=== PATIENT | male | born 1960 | race Caucasian/White ===

== ENCOUNTER 2017-03-08 13:09 | Outpatient (CLI) | payer MEDICARE, OTHER ==
[2017-03-08 13:07] VITALS: BP 147/80
[~2017-03-08 13:09] MED LIST: ASPI81TA30 PO; ATOR20TA66 PO; CETI-102 PO; FURO-150 PO; GABA-534 PO; LISI40TA4 PO; MECL12.584 PO; POTA20TA19 PO; TRAM50TA2 PO
[2017-03-08 13:26] VITALS: BP 147/80
== END 2017-03-08 13:55 | disposition home or self-care (01) ==
LOC: ORTHO 13:09
PROVIDERS: ATTEND Nurse Practitioner Family
DX: S86.012D Strain of left Achilles tendon, subsequent encounter (principal); W18.30XA Fall on same level, unspecified, initial encounter; Y92.838 Other recreation area as the place of occurrence of the external cause
CPT/HCPCS: 99213

== ENCOUNTER 2017-03-15 13:06 | Emergency (ER) | payer MEDICARE, OTHER ==
[~2017-03-15] VITALS: Ht 167.6 cm; Wt 145.4 kg
[2017-03-15] MEDS ORDERED: metoprolol tartrate 25mg tablet PO ONE (14:40)
[2017-03-15] MEDS ORDERED: morphine 2 MG/ML inj. syringe IV ONE (14:40)
[2017-03-15] MEDS ORDERED: nitroGLYCERIN 0.4mg SUBLingual tab SL PRN (14:40)
[2017-03-15] MEDS ORDERED: aspirin 81mg tab.chew PO ONE (14:40)
[2017-03-15 15:36] LABS: BASOPHILS % (AUTO) 0.5 % (0-1); EOSINOPHILS # (AUTO) 0.2 X10'3 (0-0.9); EOSINOPHILS % (AUTO) 2.2 % (0-6); HEMATOCRIT 44.8 % (42.0-52.0); HEMOGLOBIN 15.9 g/dl (14.0-17.9); LYMPHOCYTES # (AUTO) 1.7 X10'3 (1.1-4.8); LYMPHOCYTES % (AUTO) 21.8 % (21-51); MEAN CORPUSCULAR HEMOGLOBIN 29.9 PG (27.0-31.0); MEAN CORPUSCULAR HGB CONC 35.4 % (33.0-36.5); MEAN CORPUSCULAR VOLUME 84.5 FL (78-98); MEAN PLATELET VOLUME 7.7 FL (7.4-10.4); MONOCYTES # (AUTO) 0.6 X10'3 (0-0.9); MONOCYTES % (AUTO) 6.9 % (2-12); NEUTROPHILS # (AUTO) 5.5 X10'3 (1.8-7.7); NEUTROPHILS % (AUTO) 68.6 % (42-75); PLATELET COUNT 223 X10'3 (140-440); RED CELL DISTRIBUTION WIDTH 13.7 % (11.5-14.5)
[2017-03-15 15:41] LABS: ALANINE AMINOTRANSFERASE 32 U/L (12-78); ALBUMIN 4.4 G/DL (3.4-5.0); ALBUMIN/GLOBULIN RATIO 1.1 (1.1-1.5); ALKALINE PHOSPHATASE 107 IU/L (46-116); ANION GAP 10 (8-16); ASPARTATE AMINO TRANSFERASE 26 U/L (10-37); BILIRUBIN,TOTAL 0.7 MG/DL (0.1-1.0); BLOOD UREA NITROGEN 9 MG/DL (7-18); CALCIUM 9.6 MG/DL (8.5-10.1); CHLORIDE 106 MMOL/L (99-107); GLUCOSE 97 MG/DL (70-104); POTASSIUM 3.8 MMOL/L (3.5-5.1); SODIUM 144 MMOL/L (135-145); TOTAL CARBON DIOXIDE 28.1 MMOL/L (24-32); TOTAL PROTEIN 8.5 G/DL (6.4-8.2); eGFR 87 ML/MIN
[2017-03-15] MEDS ORDERED: NITR0.4T51 SL (16:33)
[2017-03-15 16:57] VITALS: BP 145/66
[2017-03-16] MEDS ORDERED: AMLO-94 PO (16:49)
[2017-03-16] MEDS ORDERED: TIZA4TAB11 PO (16:50)
== END 2017-03-15 16:59 | disposition left against medical advice (07) ==
LOC: ER 13:07
DX: I20.0 Unstable angina (principal); G89.29 Other chronic pain; M54.9 Dorsalgia, unspecified; I10 Essential (primary) hypertension; Z86.711 Personal history of pulmonary embolism; Z79.82 Long term (current) use of aspirin
CPT/HCPCS: 36415; 71045; 80053; 85025; 93005; 96374; 99285; J2270; 84484; 85610

== ENCOUNTER 2017-03-16 12:56 | Inpatient (IN) | payer MEDICARE, OTHER ==
[~2017-03-16] VITALS: Ht 167.6 cm; Wt 145.0 kg
[~2017-03-16 12:56] MED LIST changes: +NITR0.4T51 SL
[2017-03-16 15:02] LABS: ALANINE AMINOTRANSFERASE 34 U/L (12-78); ALBUMIN 4.6 G/DL (3.4-5.0); ALBUMIN/GLOBULIN RATIO 1.2 (1.1-1.5); ALKALINE PHOSPHATASE 111 IU/L (46-116); ANION GAP 11 (8-16); ASPARTATE AMINO TRANSFERASE 27 U/L (10-37); BILIRUBIN,TOTAL 0.9 MG/DL (0.1-1.0); BLOOD UREA NITROGEN 14 MG/DL (7-18); BUN/CREATININE RATIO 15.6 (5.4-32.0); CALCIUM 9.5 MG/DL (8.5-10.1); CHLORIDE 103 MMOL/L (99-107); GLUCOSE 104 MG/DL (70-104); MAGNESIUM 2.3 MG/DL (1.5-2.4); SODIUM 140 MMOL/L (135-145); TOTAL CARBON DIOXIDE 25.9 MMOL/L (24-32); TOTAL PROTEIN 8.6 G/DL (6.4-8.2); eGFR 87 ML/MIN
[2017-03-16] MEDS ORDERED: aspirin 325mg tablet PO ONE (16:00)
[2017-03-16 16:28] LABS: BASOPHILS % (AUTO) 0.6 % (0-1); EOSINOPHILS # (AUTO) 0.2 X10'3 (0-0.9); EOSINOPHILS % (AUTO) 2.7 % (0-6); HEMOGLOBIN 16.2 g/dl (14.0-17.9); LYMPHOCYTES # (AUTO) 2.4 X10'3 (1.1-4.8); LYMPHOCYTES % (AUTO) 28.1 % (21-51); MEAN CORPUSCULAR HEMOGLOBIN 29.9 PG (27.0-31.0); MEAN CORPUSCULAR HGB CONC 35.1 % (33.0-36.5); MEAN PLATELET VOLUME 7.5 FL (7.4-10.4); MONOCYTES # (AUTO) 0.7 X10'3 (0-0.9); MONOCYTES % (AUTO) 8.1 % (2-12); NEUTROPHILS # (AUTO) 5.2 X10'3 (1.8-7.7); NEUTROPHILS % (AUTO) 60.5 % (42-75); PLATELET COUNT 245 X10'3 (140-440); RED BLOOD COUNT 5.41 X10'6 (4.70-6.10); RED CELL DISTRIBUTION WIDTH 14.1 % (11.5-14.5); WHITE BLOOD COUNT 8.6 X10'3 (4.5-11.0)
[2017-03-16] MEDS ORDERED: AMLO-94 PO (16:49)
[2017-03-16] MEDS ORDERED: TIZA4TAB11 PO (16:50)
[2017-03-16] MEDS ORDERED: potassium Cl 20 mEq SR tablet PO PRN ×2 (17:15)
[2017-03-16] MEDS ORDERED: magnesium Cl slow-release 64mg tablet PO PRN (17:15)
[2017-03-16] MEDS ORDERED: HYDROcodone/acetaminophen 10/325mg tab PO PRN (17:15)
[2017-03-16] MEDS ORDERED: aminophylline 250mg/10ml inj. IV PRN (17:15)
[2017-03-16] MEDS ORDERED: ondansetron/PF 4mg/2ml inj IV PRN (17:15)
[2017-03-16] MEDS ORDERED: HYDROcodone/acetaminophen 5mg/325mg tablet PO PRN (17:15)
[2017-03-16] MEDS ORDERED: metoprolol tartrate 1mg/ml inj IV PRN (17:15)
[2017-03-16] MEDS ORDERED: magnesium hydroxide 30ml (MOM) UD suspension PO PRN (17:15)
[2017-03-16] MEDS ORDERED: nitroGLYCERIN 0.4mg SUBLingual tab SL PRN (17:15)
[2017-03-16] MEDS ORDERED: morphine 2 MG/ML inj. syringe IV PRN ×2 (17:15)
[2017-03-16] MEDS ORDERED: regadenoson 0.4mg/5ml syringe IV PRN (17:15)
[2017-03-16] MEDS ORDERED: potassium Cl 40MEQ/NS 500ml 500 ML IV PRN ×2 (17:15)
[2017-03-16] MEDS ORDERED: mag hydrox/Alum hydrox/simeth 30ml oral suspension PO PRN (17:15)
[2017-03-16] MEDS ORDERED: acetaminophen 325mg tablet PO PRN ×2 (17:15)
[2017-03-16] MEDS ORDERED: magnesium 2GM in 50ml NS 50 ML IV PRN (17:15)
[2017-03-16] MEDS ORDERED: magnesium 4gm in 100ml NS 100 ML IV PRN (17:15)
[2017-03-16 17:48] LABS: D-DIMER 1.95 MG/L FEU (0-0.50)
[2017-03-16] MEDS ORDERED: iohexol 350MG/ML 100ml bottle IV ONE (18:03)
[2017-03-16 20:00] VITALS: BP 133/85
[2017-03-16] MEDS: normal saline 1000ml 1,000 ML IV SCH (20:05)
[2017-03-16] MEDS: heparin, porcine 5000 units/ml vial SQ SCH (20:06)
[2017-03-16] MEDS: traMADol 50MG tablet PO SCH (20:23)
[2017-03-16] MEDS ORDERED: temazepam 15mg capsule PO PRN (21:00)
[2017-03-17] VITALS (10 sets, daily range): BP systolic 106–140; BP diastolic 55–77
[2017-03-17] MEDS: gabapentin 400mg capsule PO SCH ×3 (00:17→16:48)
[2017-03-17] MEDS: tizanidine 4mg tablet PO SCH ×3 (00:18→16:48)
[2017-03-17] MEDS: normal saline 1000ml 1,000 ML IV SCH ×2 (03:11→07:42)
[2017-03-17 04:45] LABS: BASOPHILS % (AUTO) 0.2 % (0-1); EOSINOPHILS # (AUTO) 0.2 X10'3 (0-0.9); EOSINOPHILS % (AUTO) 2.2 % (0-6); HEMATOCRIT 40.3 % (42.0-52.0); HEMOGLOBIN 14.3 g/dl (14.0-17.9); LYMPHOCYTES # (AUTO) 1.6 X10'3 (1.1-4.8); LYMPHOCYTES % (AUTO) 20.8 % (21-51); MEAN CORPUSCULAR HEMOGLOBIN 30.3 PG (27.0-31.0); MEAN CORPUSCULAR HGB CONC 35.6 % (33.0-36.5); MEAN CORPUSCULAR VOLUME 85.2 FL (78-98); MEAN PLATELET VOLUME 7.4 FL (7.4-10.4); MONOCYTES # (AUTO) 0.5 X10'3 (0-0.9); MONOCYTES % (AUTO) 6.1 % (2-12); NEUTROPHILS # (AUTO) 5.4 X10'3 (1.8-7.7); NEUTROPHILS % (AUTO) 70.7 % (42-75); PLATELET COUNT 208 X10'3 (140-440); RED BLOOD COUNT 4.73 X10'6 (4.70-6.10); RED CELL DISTRIBUTION WIDTH 14.1 % (11.5-14.5); WHITE BLOOD COUNT 7.6 X10'3 (4.5-11.0)
[2017-03-17 05:02] LABS: ALBUMIN 3.7 G/DL (3.4-5.0); ANION GAP 9 (8-16); BLOOD UREA NITROGEN 20 MG/DL (7-18); CALCIUM 8.7 MG/DL (8.5-10.1); CHLORIDE 105 MMOL/L (99-107); GLUCOSE 114 MG/DL (70-104); MAGNESIUM 2.2 MG/DL (1.5-2.4); SODIUM 140 MMOL/L (135-145); TOTAL CARBON DIOXIDE 26.4 MMOL/L (24-32); TROPONIN I < 0.04 NG/ML (0.0-0.05); eGFR 77 ML/MIN
[2017-03-17] MEDS ORDERED: pantoprazole 40mg Tablet.DR PO SCH (07:30)
[2017-03-17] MEDS: traMADol 50MG tablet PO SCH ×2 (07:41→14:42)
[2017-03-17] MEDS: heparin, porcine 5000 units/ml vial SQ SCH (07:42)
[2017-03-17] MEDS ORDERED: non-formulary drug (Lisinopril* 1 TAB) PO SCH (08:00)
[2017-03-17] MEDS ORDERED: cetirizine 10mg tablet PO SCH (08:00)
[2017-03-17] MEDS ORDERED: potassium Cl 20 mEq SR tablet PO SCH (08:00)
[2017-03-17] MEDS ORDERED: K and/or MAG REPLACEMENT MC SCH (08:00)
[2017-03-17] MEDS ORDERED: CefTRIAXone 1 gm/50ml D5W ADV 50 ML IV SCH (08:00)
[2017-03-17] MEDS ORDERED: lisinopril 20mg tablet PO SCH (08:00)
[2017-03-17] MEDS ORDERED: aspirin 81mg tab.chew PO SCH (08:30)
[2017-03-17] MEDS ORDERED: aminophylline inj. 0 ML IV ONE (08:38)
[2017-03-17] MEDS ORDERED: regadenoson 0.4mg/5ml syringe IV ONE (08:38)
[2017-03-17] MEDS ORDERED: CefTRIAXone/D5W-Rocephin 1gm 50 ML IV SCH (13:06)
[2017-03-17] MEDS ORDERED: lactobacillus rhamnosus 10,000 MMU CELLS/CAPSULE PO SCH (17:30)
[2017-03-17] MEDS ORDERED: PRAV40TA3 PO (18:18)
[2017-03-17] MEDS ORDERED: PANT40TA4 PO (18:18)
[2017-03-17] MEDS ORDERED: FURO-150 PO (18:18)
== END 2017-03-17 20:20 | disposition home or self-care (01) | DRG 392 ==
LOC: ER 12:56 → ED HOLD 16:36 → SUR 3N 18:42
PROVIDERS: ADMIT Internal Medicine; ATTEND Internal Medicine
PROC: BW241ZZ Computerized Tomography (CT Scan) of Chest and Abdomen using Low Osmolar Contrast (ICD-10-PCS; principal; 2017-03-16)
PROC: 4A02XM4 Measurement of Cardiac Total Activity, External Approach (ICD-10-PCS; 2017-03-17)
PROC: 3E033HZ Introduction of Radioactive Substance into Peripheral Vein, Percutaneous Approach (ICD-10-PCS; 2017-03-17)
DX: K21.9 Gastro-esophageal reflux disease without esophagitis (principal); E66.01 Morbid (severe) obesity due to excess calories; Z68.43 Body mass index [BMI] 50.0-59.9, adult; F32.9 Major depressive disorder, single episode, unspecified; G47.33 Obstructive sleep apnea (adult) (pediatric); I10 Essential (primary) hypertension; G89.29 Other chronic pain; M54.9 Dorsalgia, unspecified; M54.2 Cervicalgia; F41.9 Anxiety disorder, unspecified; Z79.899 Other long term (current) drug therapy; Z79.82 Long term (current) use of aspirin; Z86.711 Personal history of pulmonary embolism
CPT/HCPCS: 36415; 71275; 78452; 80048; 80053; 83605; 83735; 83880; 84484; 85025; 85379; 87040; 87070; 93005; 93017; 93306; 97116; 97161; 97530; 99285; A9500; J0280; J0696; J1644; J2785; J7030; Q9967